=== PATIENT | male | born 1970 ===

== ENCOUNTER 2018-11-13 09:50 | Emergency (ER) | payer BC ==
[2018-11-13 09:55] VITALS: BP 128/91
[2018-11-13] MEDS ORDERED: DECADRON IM STA (10:31)
--- NOTE | 2018-11-13 10:32 | Emergency Department Report ---
ED Rash HPI - HPI Chief Complaint: Skin Rash Stated Complaint: RASH/BUMPS ON BODY Time Seen by Provider: 11/13/18 10:05 Duration: 3 Days Location: Back, Abdomen, Upper Extremities, Lower Extremities Suspected Cause: Unknown Rash Symptoms: Yes Itching, No Facial Swelling, No Tongue/Oral Swelling, No Breathing Difficulties, No Choking Sensation, No Wheezing/Dyspnea, No Peeling, No Blistering, No Fever, No Lightheaded, No Malaise, No Myalgias Severity: moderate Other History: This is a [id number] male who is here report that he has itchy red areas all over his body except for his neck and face. He reports that it started 3 days ago and patient is again worse. Denies taking any medication and denies any pain. Denies any sore throat, itching, cough, wheeze and, difficulty swallowing or swelling in his neck or tongue. Unknown contact. No new foods or medications in the environment. She says the only thing that he did new [facility] to rash eruption. Immunizations up-to-date. ED Review of Systems ROS: Stated complaint: RASH/BUMPS ON BODY Other details as noted in HPI Constitutional: denies: chills, fever, malaise Eyes: denies: eye pain ENT: denies: throat pain, congestion Respiratory: denies: cough, shortness of breath, wheezing Cardiovascular: denies: chest pain, palpitations, edema, syncope Gastrointestinal: denies: nausea, vomiting Skin: rash, pruritus Neurological: denies: headache, weakness ED Past Medical Hx - Past Medical History Previous Medical History?: Yes - Surgical History Past Surgical History?: No - Family History Family history: hypertension - Social History Smoking Status: Never Smoker Substance Use Type: Alcohol - Medications Home Medications: Home Medications Medication Instructions Recorded Confirmed Last Taken Type Prednisone [predniSONE 10 mg 10 mg PO .TAPER #1 tab.ds.pk 11/13/18 Unknown Rx (6-Day Pack, 21 Tabs)] diphenhydrAMINE [Benadryl CAP] 50 mg PO QHS PRN #5 capsule 11/13/18 Unknown Rx hydrOXYzine HCL [Atarax] 25 mg PO Q6HR PRN #20 tablet 11/13/18 Unknown Rx Rash Exam - Exam General: Vital signs noted. No distress. Alert and acting appropriately. This is a 48-year-old male well-nourished well-developed in no acute distress. HEENT: No Periorbital Edema, No Conjuctival Injection, No Chemosis, No Perioral Edema, No Tongue Edema, No Uvular Edema, No Compromised Airway, No Drooling Lungs: Yes Good Air Exchange, No Wheezes, No Ronchi, No Stridor, No Cough, No Labored Respirations, No Retractions, No Use of Accessory Muscles, No Other Abnormal Lung Sounds Heart: Yes Regular, No Murmur Skin: Yes Urticarial Rash (to anterior posterior torso and upper and lower extremities), Yes Excoriations, Yes Erythema (to anterior posterior torso and upper and lower extremities), No Maculopapular Rash, No Morbilliform rash, No Bulla(e), No Weeping, No Tenderness Other: Positive: Abdomen Normal, Neurologic Normal, Musculoskeletal Normal ED Course Vital Signs 11/13/18 09:53 Temperature 98.5 F Pulse Rate 99 H Respiratory 18 Rate Blood Pressure 128/91 O2 Sat by Pulse 97 Oximetry - Reevaluation(s) Reevaluation #1: 11/13/18 11:14 Patient is stable and he was given Decadron 10 mg IM in emergency room for contact dermatitis suspect poison lakshmi but could be from other exposure to allergen. Itching is better. ED Medical Decision Making - Medical Decision Making 48-year-old male here with contact dermatitis rash suspect from poison lakshmi or poison oak. He was given Decadron 10 mg IM and emergency room with relief of itching and and rash color is more pale than when he initially arrived in the emergency room. Patient does not have any anaphylactic symptoms and remained stable throughout ED course with stable vital signs. I discussed with him diagnosis, treatment plan and I also discussed with him that if rash is not subsided then he will need to follow-up with quality systems specialist otherwise follow-up with his primary care physician in 2-3 days and to take medication as prescribed and he voiced understanding and discharged home in stable condition - Differential Diagnosis shingles, poison lakshmi, other contact dermatitis Critical care attestation.: If time is entered above; I have spent that time in minutes in the direct care of this critically ill patient, excluding procedure time. ED Disposition Clinical Impression: Pruritus and related conditions Contact dermatitis Qualifiers: Contact dermatitis type: unspecified Contact dermatitis trigger: unspecified trigger Qualified Code(s): L25.9 - Unspecified contact dermatitis, unspecified cause Disposition: DC-01 TO HOME OR SELFCARE Is pt being admited?: No Does the pt Need Aspirin: No Condition: Stable Instructions: Contact Dermatitis (ED), Poison Lakshmi (ED), Itchy Skin (ED) Additional Instructions: Please see medication as prescribed. C referral to quality systems specialist and primary care physician. He will need to follow up in 2-3 days If rash worsens a need to follow-up swelling to neck, tongue, wheezing, difficulty breathing, chest pain, fever, chills, sore throat with swelling to tongue and difficulty swallowing, cough return to emergency room [facility] Referrals: NADIYA HOLLEY MD [Primary Care Provider] - 2-3 Days SALINAS WINSTON MD [Staff Physician] - 2-3 Days Forms: Work/School Release Form(ED)
== END 2018-11-13 11:34 | disposition home or self-care (01) ==
LOC: EDSEX → ED 09:50
DX: L25.9 Unspecified contact dermatitis, unspecified cause (principal); Z79.899 Other long term (current) drug therapy
CPT/HCPCS: 96372; 99282; J1100

== ENCOUNTER 2020-07-29 16:30 | Emergency (ER) | payer SELFPAY ==
[2020-07-29 16:36] VITALS: BP 145/101
--- NOTE | 2020-07-29 16:46 | Emergency Department Report ---
ED Eye Problem HPI - General Chief complaint: Eye Problems Stated complaint: EYE DRAINAGE Time Seen by Provider: 07/29/20 16:34 Source: patient Mode of arrival: Ambulatory Limitations: No Limitations - History of Present Illness Initial comments: Patient is a 50-year-old male presents emergency room with complaints of bilateral eye irritation that began a week ago. He states he has associated photophobia. He states his eyes are red, itchy, frequent watering. He states occasionally he has noticed a small amount of drainage. He denies any crusting. He denies any vision changes. He states he does wear contact lenses but removes them when the eyes became irritated and has been wearing eyeglasses. He denies any past medical history. No allergies to medications. He denies getting anything into the eye. - Related Data Previous Rx's Medication Instructions Recorded Last Taken Type Prednisone [predniSONE 10 mg 10 mg PO .TAPER #1 tab.ds.pk 11/13/18 Unknown Rx (6-Day Pack, 21 Tabs)] diphenhydrAMINE [Benadryl CAP] 50 mg PO QHS PRN #5 capsule 11/13/18 Unknown Rx hydrOXYzine HCL [Atarax] 25 mg PO Q6HR PRN #20 tablet 11/13/18 Unknown Rx Ketotifen Fumarate 1 drop OP BID #1 bottle 07/29/20 Unknown Rx Polymyxin B Sulf/Trimethoprim 1 drop OP QID 7 Days #1 bottle 07/29/20 Unknown Rx [Polytrim Eye Drops [id number]/0.1%] Allergies Allergy/AdvReac Type Severity Reaction Status Date / Time No Known Allergies Allergy Unverified 11/13/18 09:56 ED Review of Systems ROS: Stated complaint: EYE DRAINAGE Other details as noted in HPI Comment: All other systems reviewed and negative ED Past Medical Hx - Past Medical History Previous Medical History?: Yes Hx Hypertension: Yes - Surgical History Past Surgical History?: No - Social History Smoking Status: Never Smoker Substance Use Type: Alcohol - Medications Home Medications: Home Medications Medication Instructions Recorded Confirmed Last Taken Type Prednisone [predniSONE 10 mg 10 mg PO .TAPER #1 tab.ds.pk 11/13/18 Unknown Rx (6-Day Pack, 21 Tabs)] diphenhydrAMINE [Benadryl CAP] 50 mg PO QHS PRN #5 capsule 11/13/18 Unknown Rx hydrOXYzine HCL [Atarax] 25 mg PO Q6HR PRN #20 tablet 11/13/18 Unknown Rx Ketotifen Fumarate 1 drop OP BID #1 bottle 07/29/20 Unknown Rx Polymyxin B Sulf/Trimethoprim 1 drop OP QID 7 Days #1 bottle 07/29/20 Unknown Rx [Polytrim Eye Drops [id number]/0.1%] ED Physical Exam - General Limitations: No Limitations General appearance: alert, in no apparent distress - Head Head exam: Present: atraumatic, normocephalic - Eye Eye exam: Present: PERRL, EOMI, conjunctival injection (bilaterally). Absent: periorbital swelling, periorbital tenderness Pupils: Present: normal accommodation - ENT ENT exam: Present: mucous membranes moist - Respiratory Respiratory exam: Absent: respiratory distress, accessory muscle use - Neurological Exam Neurological exam: Present: alert, oriented X3 - Psychiatric Psychiatric exam: Present: normal affect, normal mood - Skin Skin exam: Present: warm, dry, intact ED Course Vital Signs 07/29/20 16:33 Temperature 98.4 F Pulse Rate 96 H Respiratory 16 Rate Blood Pressure 145/101 [Right] O2 Sat by Pulse 100 Oximetry ED Medical Decision Making - Medical Decision Making Patient is a 50-year-old male presents emergency room with complaints of bilateral eye irritation that began a week ago. He states he has associated photophobia. He states his eyes are red, itchy, frequent watering. He states occasionally he has noticed a small amount of drainage. He denies any crusting. He denies any vision changes. He states he does wear contact lenses but removes them when the eyes became irritated and has been wearing eyeglasses. He denies any past medical history. No allergies to medications. He denies getting anything into the eye. Vitals are stable. On exam patient has conjunctival injection bilaterally, EOMI, no pain with EOMI, PERRLA, no periorbital edema, erythema, tenderness palpation. Symptoms appear most consistent with conjunctivitis likely allergic in origin. Patient given prescription for Zaditor and polytrim eyedrops. Patient be referred to front end engineer and discussed the importance of follow-up. Advised patient Please use medication as prescribed. Please separate drops by 1 hour. Avoid rubbing the eyes. Please follow-up with front end engineer. Return to emergency room for any new or worsening symptoms. Critical care attestation.: If time is entered above; I have spent that time in minutes in the direct care of this critically ill patient, excluding procedure time. ED Disposition Clinical Impression: Conjunctivitis Qualifiers: Conjunctivitis type: acute Acute conjunctivitis type: unspecified Laterality: bilateral Qualified Code(s): H10.33 - Unspecified acute conjunctivitis, bilateral Disposition: - TO HOME OR SELFCARE Is pt being admited?: No Does the pt Need Aspirin: No Condition: Stable Additional Instructions: Please use medication as prescribed. Please separate drops by 1 hour. Avoid rubbing the eyes. Please follow-up with front end engineer. Return to emergency room for any new or worsening symptoms. Prescriptions: Ketotifen Fumarate 1 drop OP BID #1 bottle Polymyxin B Sulf/Trimethoprim [Polytrim Eye Drops [id number]/0.1%] 1 drop OP QID 7 Days #1 bottle Referrals: QUINTIN CONROY MD [Staff Physician] - 2-3 Days [facility] [Provider Group] - 2-3 Days Forms: Work/School Release Form(ED) Time of Disposition: 16:44 Print Language: ESTONIAN
== END 2020-07-29 17:11 | disposition home or self-care (01) ==
LOC: ED 16:30
DX: H10.9 Unspecified conjunctivitis (principal); I10 Essential (primary) hypertension; Z79.899 Other long term (current) drug therapy
CPT/HCPCS: 99282